=== PATIENT | female | born 1965 | race Caucasian/White ===

== ENCOUNTER → 2016-10-29 | Outpatient (CLI) | payer BC ==
--- NOTE | 2016-10-29 10:19 | XR ---
EXAMINATION TYPE: XR thoracic spine complete DATE OF EXAM: 10/29/2016 10:09 AM COMPARISON: NONE HISTORY: Pain Alignment is anatomic. There is no compression deformities. Hypertrophic changes and disc space narr owing at all levels with most marked changes at the thoracic spine. IMPRESSION: 1. Multilevel degenerative disc disease.
== END | disposition home or self-care (01) ==
LOC: RADXRMAIN 09:43
PROVIDERS: ATTEND Family Medicine
DX: M51.34 Other intervertebral disc degeneration, thoracic region (principal)
CPT/HCPCS: 72072

== ENCOUNTER → 2017-03-20 | Outpatient (CLI) | payer BC ==
--- NOTE | 2017-03-20 18:32 | XR ---
EXAMINATION TYPE: XR chest 2V DATE OF EXAM: 03/20/2017 COMPARISON: 04/29/2016 HISTORY: Dyspnea TECHNIQUE: Frontal and lateral views of the chest are obtained. FINDINGS: There is patchy infiltrate in the lateral and posterior right lower lobe. There is bluntin g of right costophrenic angle. Heart and mediastinum are normal. There are no hilar masses. Bony thor ax is intact. IMPRESSION: There is new right lower lobe pneumonia and pleural fluid compared to last exam. Normal heart.
== END | disposition home or self-care (01) ==
LOC: RADXRMAIN 18:03
PROVIDERS: ATTEND Family Medicine
DX: J18.9 Pneumonia, unspecified organism (principal); J90 Pleural effusion, not elsewhere classified
CPT/HCPCS: 71020